=== PATIENT | female | born 1965 | race Caucasian/White ===

== ENCOUNTER 2018-01-16 17:42 | Emergency (ER) | payer MEDICAID ==
[2018-01-16 17:52] VITALS: BP 131/92
--- NOTE | 2018-01-16 18:48 | EDM.PDOC ---
Scribed by Humera Verde 01/16/18 [id number] for Rick Lucero PA <Rick Lucero - Last Filed: 01/16/18 18:49> ED HPI GENERAL MEDICAL PROBLEM - General Chief Complaint: General Stated Complaint: [id number] [facility] Time Seen by Provider: 01/16/18 18:10 Source of Information: Reports: Patient, RN, RN Notes Reviewed History Limitations: Reports: No Limitations - History of Present Illness INITIAL COMMENTS - FREE TEXT/NARRATIVE: Patient is a 52-year-old female starting yesterday had a hard time walking. She has rheumatoid arthritis. She also had back pain yesterday. Today she had nausea , vomiting and diarrhea. She ate a sandwich at noon and vomited. She lives in [place]. She has chills, weakness, dizzness and "tongue feels fat". Duration: Getting Worse Location: Reports: Generalized Quality: Reports: Ache Severity: Moderate Improves with: Reports: None Worsens with: Reports: None Associated Symptoms: Reports: No Other Symptoms Generalized Pain Score (Numeric/FACES): 6 - Related Data Allergies Allergy/AdvReac Type Severity Reaction Status Date / Time No Known Allergies Allergy Verified 01/16/18 17:47 Home Meds: Home Meds ALPRAZolam [Alprazolam] 0.5 mg PO PRN 02/27/15 [History] Albuterol/Ipratropium [Combivent Respimat] 02/27/15 [History] Alendronate Sodium [Alendronate] 70 mg PO WEEKLY 02/27/15 [History] Levothyroxine Sodium 10 mcg PO DAILY 02/27/15 [History] Lisinopril 20 mg PO DAILY 02/27/15 [History] Omeprazole 20 mg PO DAILY 02/27/15 [History] Past Medical History Cardiovascular History: Reports: Hypertension Other Respiratory History: lungs are diminished, Gastrointestinal History: Reports: GERD Musculoskeletal History: Reports: Arthritis (rheumatoid), Back Pain, Chronic Psychiatric History: Reports: Anxiety Endocrine/Metabolic History: Reports: Diabetes, Type II, Hyperthyroidism - Past Surgical History HEENT Surgical History: Reports: Tonsillectomy GI Surgical History: Reports: Cholecystectomy Female Surgical History: Reports: Tubal Ligation Neurological Surgical History: Reports: Other (See Below) (back surgerylumbar L3 -4) Musculoskeletal Surgical History: Reports: Other (See Below) Other Musculoskeletal Surgeries/Procedures:: arm surgery, plate in the left foot , no meniscus on the right knee. right arm surgery Social & Family History - Family History Family Medical History: Noncontributory - Tobacco Use Smoking Status *Q: Current Every Day Smoker Years of Tobacco use: 35 Packs/Tins Daily: 1 - Caffeine Use Caffeine Use: Reports: Coffee - Recreational Drug Use Recreational Drug Use: No ED ROS GENERAL - Review of Systems Review Of Systems: ROS reveals no pertinent complaints other than HPI. ED EXAM, GENERAL - Physical Exam Exam: See Below Exam Limited By: No Limitations Eye Exam: Bilateral Eye: EOMI, Normal Inspection, PERRL Ears: Normal External Exam, Normal Canal, Hearing Grossly Normal, Normal TMs Nose: Normal Inspection, Normal Mucosa, No Blood Throat/Mouth: Normal Inspection, Normal Lips, Normal Teeth, Normal Gums, Normal Oropharynx, Normal Voice, No Airway Compromise Head: Atraumatic, Normocephalic Neck: Normal Inspection, Supple, Non-Tender, Full Range of Motion Respiratory/Chest: No Respiratory Distress, Lungs Clear, Normal Breath Sounds, No Accessory Muscle Use, Chest Non-Tender Cardiovascular: Normal Peripheral Pulses, Regular Rate, Rhythm, No Edema, No Gallop, No JVD, No Murmur, No Rub GI/Abdominal: Other (obese diffuse tenderness) (Female) Exam: Deferred Rectal (Female) Exam: Deferred Back Exam: Normal Inspection, Full Range of Motion, NT Extremities: Normal Inspection, Normal Range of Motion, Non-Tender, Normal Capillary Refill, No Pedal Edema Neurological: Alert, Oriented, CN II-XII Intact, Normal Cognition, Normal Gait, Normal Reflexes, No Motor/Sensory Deficits Psychiatric: Normal Affect, Normal Mood Skin Exam: Warm, Dry, Intact, Normal Color, No Rash Course - Vital Signs Last Recorded V/S: Last Vital Signs Temp 36.8 C 01/16/18 17:51 Pulse 117 H 01/16/18 17:51 Resp 22 H 01/16/18 17:51 BP 131/92 H 01/16/18 17:51 Pulse Ox 96 01/16/18 17:51 - Orders/Labs/Meds Orders: Active Orders 24 hr Category Date Time Status UA W/MICROSCOPIC [URIN] Stat Lab 01/16/18 18:31 Ordered [facility] [REF] Urgent Lab 01/16/18 18:28 Received Labs: Laboratory Tests 01/16/18 01/16/18 01/16/18 Range/Units 18:28 18:28 18:28 WBC 9.6 (5.0-10.0) 10^3/uL RBC 4.27 (4.2-5.4) 10^6/uL Hgb 13.9 (12.0-16.0) g/dL Hct 41.8 (37.0-47.0) % MCV 97.9 (80-100) fL MCH 32.6 (27.0-34.0) pg MCHC 33.3 (33.0-35.0) g/dL Plt Count 206 (150-450) 10^3/uL Neut % (Auto) 85.8 H (42.2-75.2) % Lymph % (Auto) 10.0 L (20.5-50.1) % [place] % (Auto) 3.4 (2-8) % Eos % (Auto) 0.7 L (1.0-3.0) % Baso % (Auto) 0.1 (0.0-1.0) % Sodium 135 (135-145) mmol/L Potassium 3.8 (3.6-5.0) mmol/L Chloride 101 (101-111) mmol/L Carbon Dioxide 26.0 (21.0-31.0) mmol/L Anion Gap 11.8 BUN 14 (7-18) mg/dL Creatinine 0.6 (0.6-1.3) mg/dL Est Cr Clr Drug Dosing 88.74 mL/min Estimated GFR (MDRD) > 60 BUN/Creatinine Ratio 23.33 Glucose 161 H (74-105) mg/dL Lactic Acid 0.9 (0.5-2.2) mmol/L Calcium 8.8 (8.4-10.2) mg/dl Magnesium 1.3 L (1.8-2.5) mg/dL Total Bilirubin 1.0 (0.2-1.0) mg/dL AST 29 (10-42) IU/L ALT 34 (10-60) IU/L Alkaline Phosphatase 96 (42-121) IU/L Total Protein 7.7 (6.7-8.2) g/dl Albumin 4.2 (3.2-5.5) g/dl Globulin 3.5 Albumin/Globulin Ratio 1.20 Amylase 31 (28-100) U/L Lipase 19 L (22-51) U/L Urine Color (YELLOW) Urine Appearance (CLEAR) Urine pH (5.0-9.0) Ur Specific [place] (1.005-1.030) Urine Protein (NEGATIVE) Urine Glucose (UA) (NEGATIVE) Urine Ketones (NEGATIVE) Urine Occult Blood (NEGATIVE) Urine Nitrite (NEGATIVE) Urine Bilirubin (NEGATIVE) Urine Urobilinogen (0.2-1.0) mg/dL Ur Leukocyte Esterase (NEGATIVE) Urine RBC /HPF Urine WBC (0-5/HPF) /HPF Ur Epithelial Cells /HPF Urine Bacteria (0-FEW/HPF) /HPF Urine Mucus /LPF Urinalysis Comment 01/16/18 Range/Units 18:31 WBC (5.0-10.0) 10^3/uL RBC (4.2-5.4) 10^6/uL Hgb (12.0-16.0) g/dL Hct (37.0-47.0) % MCV (80-100) fL MCH (27.0-34.0) pg MCHC (33.0-35.0) g/dL Plt Count (150-450) 10^3/uL Neut % (Auto) (42.2-75.2) % Lymph % (Auto) (20.5-50.1) % [place] % (Auto) (2-8) % Eos % (Auto) (1.0-3.0) % Baso % (Auto) (0.0-1.0) % Sodium (135-145) mmol/L Potassium (3.6-5.0) mmol/L Chloride (101-111) mmol/L Carbon Dioxide (21.0-31.0) mmol/L Anion Gap BUN (7-18) mg/dL Creatinine (0.6-1.3) mg/dL Est Cr Clr Drug Dosing mL/min Estimated GFR (MDRD) BUN/Creatinine Ratio Glucose (74-105) mg/dL Lactic Acid (0.5-2.2) mmol/L Calcium (8.4-10.2) mg/dl Magnesium (1.8-2.5) mg/dL Total Bilirubin (0.2-1.0) mg/dL AST (10-42) IU/L ALT (10-60) IU/L Alkaline Phosphatase (42-121) IU/L Total Protein (6.7-8.2) g/dl Albumin (3.2-5.5) g/dl Globulin Albumin/Globulin Ratio Amylase (28-100) U/L Lipase (22-51) U/L Urine Color Yellow (YELLOW) Urine Appearance Slightly cloudy (CLEAR) Urine pH 6.0 (5.0-9.0) Ur Specific [place] 1.010 (1.005-1.030) Urine Protein Negative (NEGATIVE) Urine Glucose (UA) Negative (NEGATIVE) Urine Ketones Negative (NEGATIVE) Urine Occult Blood Trace-intact H (NEGATIVE) Urine Nitrite Negative (NEGATIVE) Urine Bilirubin Negative (NEGATIVE) Urine Urobilinogen 0.2 (0.2-1.0) mg/dL Ur Leukocyte Esterase Small H (NEGATIVE) Urine RBC 0-5 /HPF Urine WBC 5-10 H (0-5/HPF) /HPF Ur Epithelial Cells Few /HPF Urine Bacteria Moderate H (0-FEW/HPF) /HPF Urine Mucus Few H /LPF Urinalysis Comment Meds: Medications Discontinued Medications Generic Name Dose Route Start Last Admin Trade Name Freq PRN Reason Stop Dose Admin Ceftriaxone Sodium 1 gm 01/16/18 19:12 01/16/18 19:28 Rocephin IVPUSH 01/16/18 19:13 1 gm ONETIME ONE Administration Cyclobenzaprine HCl 10 mg 01/16/18 20:15 Flexeril PO 01/16/18 20:16 ONETIME ONE Sodium Chloride 1,000 mls @ 999 mls/hr 01/16/18 18:47 01/16/18 19:10 Normal Saline IV 01/16/18 19:47 999 mls/hr .BOLUS ONE Administration Ketorolac Tromethamine 15 mg 01/16/18 19:12 01/16/18 19:28 Toradol IVPUSH 01/16/18 19:13 15 mg ONETIME ONE Administration Ondansetron HCl 4 mg 01/16/18 18:47 01/16/18 19:10 Zofran IV 01/16/18 18:48 4 mg ONETIME ONE Administration Departure - Departure Disposition: Home, Self-Care 01 Clinical Impression: Lumbar paraspinal muscle spasm UTI (urinary tract infection) Qualifiers: Urinary tract infection type: acute pyelonephritis Qualified Code(s): N10 - Acute pyelonephritis - Discharge Information Instructions: Urinary Tract Infection, Adult, [id number] Referrals: PCP,Not In Area [Primary Care Provider] - Forms: ED Department Discharge Additional Instructions: 1) rest 2) drink lots of liquids 3) take tylenol as needed for fever chills 4) try heat or ice to sore areas 5) follow up at clinic rx given; keflex 250mg qid x 40 flexeril 10mg bid prn x 12 <Leander Mortensen - Last Filed: 01/16/18 20:20> Course - Re-Assessments/Exams Free Text/Narrative Re-Assessment/Exam: 01/16/18 19:12 results discussed with pt. 01/16/18 20:16 re-exam; s/p Iv Rx & fluids = much better now except back spasm not 100%. Departure - Departure Time of Disposition: 20:17 Condition: Good I have read and agree with the documentation that has been completed regarding this visit. By signing this record, I attest that the documentation was completed in my physical presence and is an accurate record of the encounter.
[2018-01-16 18:55] LABS: ANION GAP 11.8; CHLORIDE,CL 101 mmol/L (101-111); SODIUM,NA 135 mmol/L (135-145)
[2018-01-16] MEDS: Ondansetron 4 MG/2 ML SDV IV ONE (19:10)
[2018-01-16] MEDS: Sodium Chloride 0.9% 1,000 ML IV ONE (19:10)
[2018-01-16] MEDS: cefTRIAXone 1 GM Vial IVPUSH ONE (19:28)
[2018-01-16] MEDS: Ketorolac 30 MG/ML SDV IVPUSH ONE (19:28)
[2018-01-16] MEDS: Cyclobenzaprine 10 MG Tab PO ONE (20:25)
== END 2018-01-16 20:27 | disposition home or self-care (01) ==
LOC: DL.ED 17:42
DX: N10 Acute pyelonephritis (principal); M62.830 Muscle spasm of back; I10 Essential (primary) hypertension; K21.9 Gastro-esophageal reflux disease without esophagitis; E11.9 Type 2 diabetes mellitus without complications; E05.90 Thyrotoxicosis, unspecified without thyrotoxic crisis or storm; F17.210 Nicotine dependence, cigarettes, uncomplicated; F41.9 Anxiety disorder, unspecified; Z79.899 Other long term (current) drug therapy
CPT/HCPCS: 36415; 80053; 81001; 82150; 83605; 83690; 83735; 85025; 86788; 96365; 96375; 99283; A9270; J0696; J1885; J2405; J7030